=== PATIENT | female | born 1985 | race Caucasian/White ===

== ENCOUNTER → 2020-03-27 15:13 | Outpatient (BNVA) | payer OTHER, SELFPAY | PROVIDERS: Visit Provider Internal Medicine | DX: F11.99 Opioid use, unspecified with unspecified opioid-induced disorder (principal) | CPT/HCPCS: 80305; 99212 ==

== ENCOUNTER → 2020-05-02 14:44 | Outpatient (BNVA) | payer OTHER, SELFPAY | PROVIDERS: Visit Provider Internal Medicine | DX: F11.20 Opioid dependence, uncomplicated (principal) | CPT/HCPCS: 80305; 99211 ==

== ENCOUNTER → 2020-05-30 14:04 | Outpatient (BNVA) | payer OTHER, SELFPAY | PROVIDERS: Visit Provider Internal Medicine | DX: F11.99 Opioid use, unspecified with unspecified opioid-induced disorder (principal) | CPT/HCPCS: 99212 ==

== ENCOUNTER → 2020-06-27 15:08 | Outpatient (BNVA) | payer OTHER, SELFPAY | PROVIDERS: Visit Provider Internal Medicine | DX: F11.99 Opioid use, unspecified with unspecified opioid-induced disorder (principal) | CPT/HCPCS: 80305; 99212 ==

== ENCOUNTER → 2020-07-27 14:52 | Outpatient (BNVA) | payer OTHER, SELFPAY | PROVIDERS: Visit Provider Internal Medicine | DX: F11.99 Opioid use, unspecified with unspecified opioid-induced disorder (principal) | CPT/HCPCS: 80305; 99212 ==

== ENCOUNTER → 2020-08-24 14:33 | Outpatient (BNVA) | payer OTHER, SELFPAY | PROVIDERS: Visit Provider Internal Medicine | DX: F11.99 Opioid use, unspecified with unspecified opioid-induced disorder (principal) | CPT/HCPCS: 99212 ==

== ENCOUNTER 2020-09-21 14:08 | Outpatient (REF) | payer OTHER, SELFPAY ==
[2020-09-25 09:47] LABS: Buprenorphine 370 ng/mL; Norbuprenorphine >1000 ng/mL
[2020-09-25 23:16] LABS: Noroxycodone Random Urine NEGATIVE ng/mL (<50); Oxycodone Random Urine NEGATIVE ng/mL (<50); Oxymorphone Random Urine NEGATIVE ng/mL (<50)
== END 2020-09-21 14:09 | disposition home or self-care (01) ==
LOC: HO.LNP 14:08
PROVIDERS: Visit Provider Internal Medicine
DX: F11.99 Opioid use, unspecified with unspecified opioid-induced disorder (principal); Z51.81 Encounter for therapeutic drug level monitoring
CPT/HCPCS: 80305; 80348; 80365; 99211

== ENCOUNTER → 2020-10-22 14:20 | Outpatient (BNVA) | payer OTHER, SELFPAY | PROVIDERS: Visit Provider Internal Medicine | DX: F11.99 Opioid use, unspecified with unspecified opioid-induced disorder (principal) | CPT/HCPCS: 80305; 99211 ==

== ENCOUNTER 2020-12-24 15:36 | Outpatient (REF) | payer OTHER, SELFPAY | END 2020-12-24 15:37 | disposition home or self-care (01) | LOC: HO.LAB 15:36 | PROVIDERS: Visit Provider Internal Medicine | DX: F11.99 Opioid use, unspecified with unspecified opioid-induced disorder (principal) | CPT/HCPCS: 80305; 80348; 80362; 99211 ==

== ENCOUNTER → 2021-02-18 14:34 | Outpatient (BNVA) | payer OTHER, SELFPAY | PROVIDERS: PCP Physician Assistant; Visit Provider Internal Medicine | DX: F11.20 Opioid dependence, uncomplicated (principal); Z51.81 Encounter for therapeutic drug level monitoring; Z79.899 Other long term (current) drug therapy | CPT/HCPCS: 80305; 99212 ==

== ENCOUNTER → 2021-04-15 14:27 | Outpatient (BNVA) | payer OTHER, SELFPAY | PROVIDERS: PCP Physician Assistant; Visit Provider Internal Medicine | DX: Z51.81 Encounter for therapeutic drug level monitoring (principal); F11.90 Opioid use, unspecified, uncomplicated | CPT/HCPCS: 80305; 99212 ==

== ENCOUNTER → 2021-06-17 13:16 | Outpatient (BNVA) | payer OTHER, SELFPAY | PROVIDERS: PCP Physician Assistant | DX: Z51.81 Encounter for therapeutic drug level monitoring (principal); F11.20 Opioid dependence, uncomplicated | CPT/HCPCS: 80305; 99211 ==

== ENCOUNTER → 2021-08-12 13:24 | Outpatient (BNVA) | payer OTHER, SELFPAY | PROVIDERS: PCP Physician Assistant | DX: Z51.81 Encounter for therapeutic drug level monitoring (principal); F11.20 Opioid dependence, uncomplicated | CPT/HCPCS: 80305; 99211 ==

== ENCOUNTER → 2021-10-08 13:21 | Outpatient (BNVA) | payer OTHER, SELFPAY | PROVIDERS: PCP Physician Assistant; Visit Provider Internal Medicine | DX: F11.20 Opioid dependence, uncomplicated (principal) | CPT/HCPCS: 80305; 99212 ==

== ENCOUNTER → 2021-12-03 13:19 | Outpatient (BNVA) | payer OTHER, SELFPAY | PROVIDERS: PCP Physician Assistant; Visit Provider Internal Medicine | DX: Z51.81 Encounter for therapeutic drug level monitoring (principal); F11.20 Opioid dependence, uncomplicated | CPT/HCPCS: 80305; 99212 ==

== ENCOUNTER → 2022-01-29 13:24 | Outpatient (BNVA) | payer OTHER, SELFPAY | PROVIDERS: PCP Physician Assistant; Visit Provider Internal Medicine | DX: F11.20 Opioid dependence, uncomplicated (principal) | CPT/HCPCS: 99212 ==

== ENCOUNTER → 2022-03-31 13:27 | Outpatient (BNVA) | payer OTHER, SELFPAY | PROVIDERS: PCP Physician Assistant; Visit Provider Internal Medicine | DX: F11.20 Opioid dependence, uncomplicated (principal) | CPT/HCPCS: 99212 ==

== ENCOUNTER → 2022-05-23 13:20 | Outpatient (BNVA) | payer OTHER, SELFPAY | PROVIDERS: PCP Physician Assistant; Visit Provider Internal Medicine | DX: F11.20 Opioid dependence, uncomplicated (principal) | CPT/HCPCS: 99212 ==

== ENCOUNTER → 2022-07-16 09:17 | Outpatient (BNVA) | payer OTHER, SELFPAY | PROVIDERS: PCP Physician Assistant; Visit Provider Nurse Practitioner Psychiatric/Mental Health | DX: Z51.81 Encounter for therapeutic drug level monitoring (principal); F11.21 Opioid dependence, in remission | CPT/HCPCS: 80305; 99212 ==

== ENCOUNTER → 2022-09-10 09:15 | Outpatient (BNVA) | payer OTHER, SELFPAY | PROVIDERS: PCP Physician Assistant; Visit Provider Nurse Practitioner Psychiatric/Mental Health | DX: Z51.81 Encounter for therapeutic drug level monitoring (principal); F11.21 Opioid dependence, in remission | CPT/HCPCS: 80305; 99212 ==

== ENCOUNTER → 2022-11-06 10:32 | Outpatient (BNVA) | payer OTHER, SELFPAY | PROVIDERS: PCP Physician Assistant; Visit Provider Nurse Practitioner Psychiatric/Mental Health | DX: Z51.81 Encounter for therapeutic drug level monitoring (principal); F11.21 Opioid dependence, in remission | CPT/HCPCS: 99212 ==

== ENCOUNTER 2023-01-01 13:28 | Outpatient (AMB) | payer OTHER, SELFPAY ==
--- NOTE | 2023-01-01 13:30 | MHC.OFFVIS ---
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 Doing well overall, bright affect [facility] Medical History Opioid use disorder Review of Systems Const Reports as per HPI and Reports no additional complaints Physical Exam Vital Signs: Last Vital Signs Pulse 74 01/01/23 13:37 BP 110/74 01/01/23 13:37 Pulse Ox 98 01/01/23 13:37 Oxygen Delivery Method Room Air 01/01/23 13:37 Const General: cooperative Psych Appearance: well kempt Speech and movement: Clear speech present Attitude: cooperative Thought process: Normal thought process present Insight: Good insight present (Psych) Judgement: Good judgement present (Psych) Assessment & Plan Assessment & Plan (1) Opioid use disorder, moderate, in sustained remission: Code(s): F11.21 - Opioid dependence, in remission Plan: continue suboxone at current dose follow up 8 weeks Medications: Refilled buprenorphine-naloxone 8-2 mg (Suboxone) 1 film sublingual TID 30 days 90 ea 1RF Coding Level of Care Code Est Pt Level 3 (16473) Diagnoses Opioid use disorder, moderate, in sustained remission F11.21
[2023-01-01 13:37] VITALS: BP 110/74; PULSE 74; O2SAT 98
== END 2023-01-01 13:59 | disposition home or self-care (01) ==
LOC: HO.HCC 13:28
PROVIDERS: PCP Physician Assistant; Visit Provider Nurse Practitioner Psychiatric/Mental Health
DX: F11.21 Opioid dependence, in remission (principal)
CPT/HCPCS: 99213

== ENCOUNTER → 2023-01-01 13:28 | Outpatient (BNVA) | payer OTHER, SELFPAY | PROVIDERS: PCP Physician Assistant; Visit Provider Nurse Practitioner Psychiatric/Mental Health | DX: F11.21 Opioid dependence, in remission (principal); Z51.81 Encounter for therapeutic drug level monitoring; Z79.899 Other long term (current) drug therapy | CPT/HCPCS: 99212 ==

== ENCOUNTER 2023-01-16 08:01 | Emergency (ER) | payer OTHER, SELFPAY ==
[2023-01-16] VITALS (9 sets, daily range): BP systolic 60–155; BP diastolic 30–114; PULSE 122–155; RESP 18–22; TEMP 36.1–37.7; O2SAT 97–100; BMI 22.1
--- NOTE | ~2023-01-16 | CT_ITS ---
EXAMS: 1. CTA chest PE protocol 2. CT abdomen pelvis with IV contrast INDICATION: Shortness of breath. Diffuse abdominal pain. COMPARISON: Abdominal KUB January 16, 2023 TECHNIQUE: Multidetector helical imaging of the chest, abdomen, and pelvis was obtained from the thoracic inlet through the pubic symphysis following administration of 100 cc of Omnipaque 350 IV contrast. Coronal and sagittal reformatted images that were obtained were also reviewed. This CT examination was performed using dose optimization techniques as appropriate, variously including the following: *Automated exposure control *Adjustment of mA and/or kV according to patient size (this includes techniques or standardized protocols for targeted exams where dose is matched to indication/reason for exam; i.e. extremities or head) *Use of iterative reconstruction technique DLP: 1104 mGy-cm FINDINGS: CHEST: Central airways are patent. Lungs are well aerated. Mild dependent opacities bilaterally suggestive of atelectasis. There is no lobar consolidation present. No pleural effusion or pneumothorax. 5 mm right middle lobe pulmonary nodule (image [id number], series 8). The heart is normal in size. There is no pericardial effusion. No appreciable coronary artery calcifications. Normal caliber thoracic aorta. No pulmonary arterial filling defect to suggest pulmonary embolus. No pathologically enlarged axillary lymph nodes. ABDOMEN/PELVIS: The liver is normal in size. There is trace periportal edema. The gallbladder is normal in appearance. There is minimal perihepatic ascites. The pancreas, spleen and adrenal glands are unremarkable. Heterogeneous attenuation of the kidneys is likely related to contrast bolus timing. There is no hydronephrosis of either kidney. The majority of the esophagus is fluid-filled. The stomach is mildly distended with fluid. Normal caliber loops of small bowel. There is a severe stool burden throughout the entirety of the colon. There are areas of circumferential colonic includes subtle wall thickening in addition to pericolonic stranding, most prominent involving the descending colon. The appendix is normal in appearance. Normal caliber abdominal aorta. No retroperitoneal lymphadenopathy. The bladder is decompressed around a Todd catheter and therefore not accurately evaluated. The uterus is either atrophic or surgically absent. There is a small amount of free pelvic fluid present which is nonspecific. No inguinal lymphadenopathy. OSSEOUS STRUCTURES No acute osseous abnormality. CT/CT abdomen pelvis w IV con IMPRESSION: 1. No pulmonary embolism. 2. Severe stool burden throughout the colon consistent with constipation. There are areas of circumferential colonic wall thickening in addition to pericolonic stranding, most prominent involving the descending colon. Findings are likely related to severe constipation, however, colitis is also within the differential. 3. The majority the esophagus is fluid-filled and the stomach is mildly distended with fluid. Small bowel loops however are normal in caliber. 4. 5 mm right middle lobe pulmonary nodule. Fleischner guidelines followed.
--- NOTE | ~2023-01-16 | XR_ITS ---
EXAMINATION: XR CHEST CLINICAL INFORMATION: Tube placement confirmation. COMPARISON: CTA chest earlier today. TECHNIQUE: Frontal view of the chest was obtained. FINDINGS: Endotracheal tube terminates at 3.6 cm above the supa. The tip of the enteric tube projects over the proximal stomach and the side-port at the level of the lower esophagus/GE junction. Normal appearance of the cardiomediastinal silhouette. No focal airspace opacity, pleural effusion or pneumothorax. No acute osseous findings. Residual IV contrast in the bilateral collecting systems. XR/XR chest 1V IMPRESSION: 1. Endotracheal tube terminates at 3.6 cm above the supa. 2. Enteric tube terminates at the proximal stomach with the side-port at the level of the lower esophagus/GE junction. Recommend advancement. 3. No acute cardiopulmonary findings.
--- NOTE | ~2023-01-16 | XR_ITS ---
EXAMINATION: XR ABDOMEN KUB CLINICAL INDICATION: Constipation COMPARISON: None available. TECHNIQUE: AP view of the abdomen. FINDINGS: There is large amount of retained feces mostly in the ascending colon. There is a nonobstructive bowel gas pattern. No calcifications seen in the left side of the colon possibly foreign bodies or unresolved peels. There is no free air under the diaphragm. XR/XR KUB IMPRESSION: Constipation
--- NOTE | 2023-01-16 08:16 | PC.NURSE ---
Bladder scan showed 0 in bladder
--- NOTE | 2023-01-16 08:33 | ED_ITS ---
HPI - General Adult General Chief complaint: General Medical Stated complaint: Abd pain/distention, high HR (142) per EMS Time Seen by Provider: 01/16/23 08:33 Source: patient, EMS, RN notes reviewed and old records reviewed Mode of arrival: EMS History of Present Illness HPI narrative: 37-year-old female with a past medical history of opiate use disorder currently on Suboxone, presenting to the ED via EMS complaining of diffuse abdominal pain, constipation, and urinary retention x 1 day. States had small hard BM last night, has not urinated for 12 hours. Denies fever/chills, vomiting, CP/SOB, illicit substance or EtOH use Onset (ago): day(s) Related Data Home Medications Medication Instructions Recorded Confirmed clonazepam 1 mg tablet 1 mg PO TID 03/27/20 07/16/22 benztropine 1 mg tablet 1 mg PO DAILY 07/16/22 07/16/22 clonidine HCl 0.1 mg tablet 0.1 mg PO BID 07/16/22 07/16/22 dextroamphetamine-amphetamine 20 20 mg PO BID 07/16/22 07/16/22 mg tablet (Adderall) lurasidone 20 mg tablet (Latuda) 20 mg PO QPM 07/16/22 07/16/22 lurasidone 80 mg tablet (Latuda) 80 mg PO QPM 07/16/22 07/16/22 propranolol 20 mg tablet 20 mg PO BID 07/16/22 07/16/22 Previous Rx's Medication Instructions Recorded nicotine 14 mg/24 hr daily 1 patch transdermal DAILY #14 12/05/22 transdermal patch patches buprenorphine 8 mg-naloxone 2 mg 1 film sublingual TID 30 days #90 01/01/23 sublingual film (Suboxone) ea Allergies Allergy/AdvReac Type Severity Reaction Status Date / Time No Known Allergies Allergy Verified 01/01/23 13:39 [No Known Allergies*] Review of Systems Review of Systems: Constitutional: No Fever, No Chills, No Fatigue, No Malaise ENT/Mouth: No Ear Pain, No Nasal Congestion,No sore throat, No Rhinorrhea, No Swallowing Difficulty Eyes: No Eye Pain, No Swelling, No Redness, No Vision Changes Cardiovascular: No Chest Pain, No SOB, No Edema, No Palpitations Respiratory: No Cough, No Sputum, No Dyspnea Gastrointestinal: No Nausea, No Vomiting, No Diarrhea, + Constipation, + Abdominal pain Genitourinary: No Dysuria, No Urinary Frequency, No Hematuria, No Urinary Incontinence, + retention, No Flank Pain Musculoskeletal: No joint pain, No Myalgias, No Joint Swelling Skin: No Skin Lesions, No rash Neuro: No Weakness, No Numbness, No Dizziness, No Headache Yes all other systems are reviewed and are negative Constitutional: Constitutional: Reports as per [facility] Past Medical History Attestation statement: The following information was validated with the patient. Source: old records reviewed Medical History Opioid use disorder Social History Social History Alcohol intake: former Smoked in Last 30 Days: No Advance Directives: No Advance Directives Information Provided: No Patient : No Physical Exam ED Vital Signs: Vital Signs - 24 hr 01/16/23 08:05 01/16/23 08:47 01/16/23 09:05 Temperature 96.9 F Pulse Rate 146 H Respiratory Rate 18 Blood Pressure 122/98 H 155/114 H Pulse Oximetry 100 Oxygen Delivery Method Room Air Fraction of Inspired Oxygen 01/16/23 15:52 01/16/23 16:48 01/16/23 17:40 Temperature Pulse Rate 122 H 144 H Respiratory Rate 18 Blood Pressure 117/81 60/30 L Pulse Oximetry 97 Oxygen Delivery Method Room Air Fraction of Inspired Oxygen 100 BMI result Body Mass Index 22.1 Const Other: Pale, diaphoretic General: diaphoretic Orientation/consciousness: patient oriented x3 Limitations: no limitations [facility] Head: Yes normal to inspection and Yes atraumatic Ears: hearing grossly normal bilaterally General nose exam: Normal external nose present Face and sinus: Yes normal facial exam Eyes General: appearance normal, both eyes and all related structures EOM: EOMs intact bilaterally Neck Neck: Yes normal visual inspection and Yes no meningeal signs Resp Effort & Inspection: normal respiratory effort and no respiratory distress Auscultation: clear to auscultation bilaterally Cardio Rate: regular rate Heart sounds: S1 normal heart sound present and S2 normal heart sound present GI Inspection: Yes normal to inspection and Yes distended Palpation (GI): Soft to palpation, Tenderness to palpation present (GI) (Diffusely) with no rebound tenderness, no guarding and not rigid General: Yes no CVA tenderness Back/Spine/Pelvis Back: no CVA tenderness Skin Rashes: no rashes Wounds: no wounds Neuro General: patient oriented x3, tone normal and no meningeal signs Gait exam (Neuro): Normal gait present Extrem General: Yes normal to inspection Course Course Course Narrative: -1048--no leukocytosis. Hemoconcentrated likely from dehydration -hypermagnesemia to 3.5 > will repeat after IVF (denies taking magnesium supplements), alk phos elevated, troponin 21.3 > will obtain 3 hour repeat XR KUB IMPRESSION: Constipation -1135--repeat troponin 30.3, OH unlikely. lactic acidosis of 6.7 > 3L IVF ordered, pending CT's -1216--patient was on CT scan table however became agitated/upset and walked out >> dark/black urine noted in Todd, CPK/ammonia level added. Will give 2 mg of IV Ativan to assist with anxiety in hopes of obtaining CT -1318--patient combative and uncooperative in CT scan received 2 of IV Ativan prior to CT, & a total 100mcg of IV Fentanyl w/o improvement, patient still jumping off CT bed, consulted ED attending Dr. Herrera > will give additional 10 mg of IM Haldol >> Haldol still unable to calm/ control patient > will go back to ED room and plan for IV Ketamine -patient now sedated, maintaining airway -multiple repeat labs/tox screen ordered however unable to obtain blood on patient after multiple sticks and phlebotomy >> manual disimpaction performed with some relief > general surgery, Dr. Swartz consulted and will evaluate patient in the ED > recommended ICU > no ICU beds, plan for transfer -161--CT angio chest PE protocol/CT abdomen pelvis w IV con IMPRESSION:? 1.? No pulmonary embolism. 2.? Severe stool burden throughout the colon consistent with constipation. There are areas of circumferential colonic wall thickening in addition to pericolonic stranding, most prominent involving the descending colon. Findings are likely related to severe constipation, however, colitis is also within the differential. 3.? The majority the esophagus is fluid-filled and the stomach is mildly distended with fluid. Small bowel loops however are normal in caliber. 4.? 5 mm right middle lobe pulmonary nodule. ? Fleischner guidelines followed. -patient mottled, BP soft 60s over 40s, decreased responsiveness, unable to obtain O2 sat > spoke with [place] transfer line patient accepted the ED to ED Dr. Skinner Peripheral Levophed started >> central line placed & intubated by Dr. Ellis & NG tube placed -1825--patient will be life flighted to [place]. [facility] at bedside Medications Administered Generic Name Dose Route Start Last Admin Trade Name Freq PRN Reason Stop Dose Admin Norepinephrine Bitartrate 8 mg in 250 mls @ 0 mls/hr 01/16/23 16:45 01/16/23 16:48 Levophed IV 0.05 mcg/kg/min .Q0M LO 5.83 mls/hr Administration Protocol Per Protocol Discontinued Medications Generic Name Dose Route Start Last Admin Trade Name Freq PRN Reason Stop Dose Admin Etomidate 10 mg 01/16/23 17:54 01/16/23 17:59 Etomidate 20 Mg/10 Ml Vial IVPUSH 01/16/23 17:55 10 mg ONCE ONE Administration Fentanyl 50 mcg 01/16/23 12:47 01/16/23 13:38 Fentanyl Citrate/Pf 100 Mcg/2 Ml Vial IVPUSH 01/16/23 12:48 50 mcg ONCE ONE Administration Protocol Fentanyl 50 mcg 01/16/23 12:58 01/16/23 13:39 Fentanyl Citrate/Pf 100 Mcg/2 Ml Vial IVPUSH 01/16/23 12:59 50 mcg ONCE ONE Administration Protocol Haloperidol Lactate 10 mg 01/16/23 13:03 01/16/23 13:38 Haloperidol Lactate 5 Mg/Ml Vial IM 01/16/23 13:04 10 mg STAT STA Administration Sodium Chloride 1,000 mls @ 999 mls/hr 01/16/23 08:45 01/16/23 15:13 Ns IV 01/16/23 09:45 Infused .Q1H1M LO Infusion Piperacillin Sod/Tazobactam 50 mls @ 100 mls/hr 01/16/23 08:44 01/16/23 15:13 Sod 3.375 gm/ Sodium Chloride IV 01/16/23 09:13 Infused ONCE ONE Infusion Sodium Chloride 1,000 mls @ 999 mls/hr 01/16/23 10:15 01/16/23 15:12 Ns IV 01/16/23 11:15 Infused .Q1H1M LO Infusion Lactated Ringer's 1,000 mls @ 999 mls/hr 01/16/23 11:45 01/16/23 15:13 Lr IV 01/16/23 12:45 Infused .Q1H1M LO Infusion Piperacillin Sod/Tazobactam 50 mls @ 100 mls/hr 01/16/23 17:47 01/16/23 17:59 Sod 3.375 gm/ Sodium Chloride IV 01/16/23 18:16 100 mls/hr ONCE ONE Administration Ketamine HCl 50 mg 01/16/23 14:22 01/16/23 14:43 Ketamine Hcl/Ns 100 Mg/10 Ml Syringe IVPUSH 01/16/23 14:23 50 mg STAT STA Administration Lorazepam 2 mg 01/16/23 12:15 01/16/23 12:22 Lorazepam 2 Mg/Ml Vial IVPUSH 01/16/23 12:16 2 mg ONCE ONE Administration Morphine Sulfate 2 mg 01/16/23 08:42 01/16/23 08:52 Morphine Sulfate 2 Mg/Ml Cartridge IVPUSH 01/16/23 08:43 2 mg ONCE ONE Administration Protocol Morphine Sulfate 4 mg 01/16/23 11:00 01/16/23 11:32 Morphine Sulfate 4 Mg/Ml Cartridge IVPUSH 01/16/23 11:01 4 mg ONCE ONE Administration Protocol Rocuronium Paloma 100 mg 01/16/23 17:54 01/16/23 17:59 Rocuronium Paloma 50 Mg/5 Ml Vial IVPUSH 01/16/23 17:55 100 mg ONCE ONE Administration Procedures Central Line Placement Right Femoral: Patient Placed on Monitor/Pulse Ox: Yes MD Prep: mask, gown and gloves Central Line Prep: Povidone-Iodine 1% and sterile drapes applied Ultrasound Used for Placement: Yes Central Line Lumen Inserted: triple Post Procedure: sutured in place, good blood return, all ports aspirated, flushed, capped and sterile dressing applied Post Procedure X-Ray: tip of catheter in good position Patient Tolerated Procedure: well Complications: none Intubation Time out performed: Yes sedative: Etomidate Mg Given: 10 paralytic: Rocuronium Mg Given: 100 Laryngoscope: fiber optic video scope ET Tube Size: 7.5 ET Tube Uncuffed: Yes Tube Secured Depth (cm): 22 Tube Secured Location: lips Tube Placement Confirmation: visualized tube passing through cords, equal breath sounds bilaterally and confirmation by capnometry Patient Tolerated Procedure: well Intubation Complications: difficult intubation and other (gastric contents ) Medical Decision Making Medical Decision Making [facility] Narrative: 37-year-old female with a past medical history of opiate use disorder currently on Suboxone, presenting to the ED via EMS complaining of diffuse abdominal pain, constipation, and urinary retention x 1 day. On exam tachycardic likely from pain, pale, diaphoretic, appears uncomfortable, abdomen mildly distended, soft, diffusely tender. 0cc noted on bladder scan. Concern for constipation/SBO & urinary retention vs perforation or ischemic bowel vs appendicitis/diverticulitis. Lower suspicion for ACS/PE Plan: EKG, labs, lactic/blood cultures, UA, CT AP, IVF, pain control, empiric antibiotics Please refer to course for remaining clinical decision making, interpretation of labs/imaging results, and discussions with consultants and/or family members. Differential Diagnosis Differential Diagnoses: The differential diagnosis associated with the presentation includes As above Admission/Observation Consideration of admission/observation: Escalation of care including admission/observation considered Lab Data [facility] Lab Attestation statement: I reviewed the patient's lab results. 01/16/23 09:51 01/16/23 09:51 Labs: Lab Results 01/16/23 01/16/23 01/16/23 Range/Units 09:51 09:51 09:51 WBC 7.3 (4.8-10.8) X10*3/uL RBC 5.88 H (4.20-5.50) X10*6/uL Hgb 17.8 H (12.0-16.0) g/dl Hct 51.9 H (37.0-47.0) % MCV 88.3 (80.0-98.0) fL MCH 30.3 (27.0-33.0) pg MCHC 34.3 (31.0-35.0) g/dl RDW 12.1 (11.0-16.0) % Plt Count 262 (160-400) X10*3/uL MPV 9.2 L (9.4-12.3) fL Immature Gran % (Auto) 0.4 (0.0-0.4) % Neut % (Auto) 71.4 (45-73) % Lymph % (Auto) 17.4 L (20-40) % Ellsworth % (Auto) 9.4 (2-11) % Eos % (Auto) 0.4 (0-4) % Baso % (Auto) 1.0 (0-2) % Lymph # (Auto) 1.3 (1.2-4.9) X10*3/uL Ellsworth # (Auto) 0.7 (0.1-1.2) X10*3/uL Eos # (Auto) 0.0 (0.0-0.4) X10*3/uL Baso # (Auto) 0.1 (0.0-0.2) X10*3/uL Abs Immat Gran (auto) 0.03 (0.00-0.03) X10*3/uL Absolute Neuts (auto) 5.2 (2.0-8.3) x10*3/uL Absolute Nucleated RBC 0.000 (0.0-0.012) X10*3/uL Nucleated RBC % (auto) 0.0 (0.0-0.2) /100WBC PT (11.1-13.3) SEC INR (0.9-1.1) Sodium 136 (135-145) mmol/L Potassium 3.8 (3.3-5.1) mmol/L Chloride 109 H (96-108) mmol/L Carbon Dioxide 12 L (22-29) mmol/L Anion Gap 19 (12-20) BUN 19 H (9-16) mg/dL Creatinine 1.02 (0.5-1.4) mg/dL Estim Creat Clear Calc 70.6 Estimated GFR > 60 Random Glucose 146 H (60-115) mg/dL Lactic Acid (0.5-2.0) mmol/L Lactic Acid F/U @ 2Hr (0.5-2.0) mmol/L Calcium 9.9 (8.4-10.2) mg/dL Magnesium 3.5 H* (1.6-2.6) mg/dL Total Bilirubin 1.1 H (0.0-1.0) mg/dL Direct Bilirubin 0.6 H (0.0-0.5) mg/dL AST 18 (5-31) U/L ALT 15 (0-31) U/L Alkaline Phosphatase 262 H (39-117) U/L Total Creatine Kinase (26-140) U/L Troponin I High Sens 21.3 H (<3.5-17.0) ng/L C-Reactive Protein 1.71 H (< or = 0.50) mg/dL Total Protein 5.6 L (6.5-8.0) g/dL Albumin 3.2 L (3.5-5.0) g/dL Lipase 12 (8-78) U/L Beta HCG, Quant < 2 mIU/mL Urine Color Urine Appearance Urine pH (5.0-9.0) Ur Specific Jenkins (1.005-1.025) Urine Protein (Neg-Trace) mg/dL Urine Glucose (UA) Urine Ketones Urine Blood (Negative) Urine Nitrite Ur Leukocyte Esterase Urine RBC (0-2) /HPF Urine WBC (0-5) /HPF Ur Squamous Epith Cells (0-2) /HPF Ur Renal Epithelial Cell Calcium Oxalate Crystal Other Crystals Urine Bacteria (None Seen) Hyaline Casts (0-2) /LPF Urine Opiates Screen Urine Fentanyl Screen Ur Barbiturates Screen Ur Phencyclidine Scrn Ur Amphetamines Screen U Benzodiazepines Scrn Urine Cocaine Screen U Marijuana (THC) Screen Ethyl Alcohol < 10 mg/dL 01/16/23 01/16/23 01/16/23 Range/Units 10:47 10:47 10:47 WBC (4.8-10.8) X10*3/uL RBC (4.20-5.50) X10*6/uL Hgb (12.0-16.0) g/dl Hct (37.0-47.0) % MCV (80.0-98.0) fL MCH (27.0-33.0) pg MCHC (31.0-35.0) g/dl RDW (11.0-16.0) % Plt Count (160-400) X10*3/uL MPV (9.4-12.3) fL Immature Gran % (Auto) (0.0-0.4) % Neut % (Auto) (45-73) % Lymph % (Auto) (20-40) % Ellsworth % (Auto) (2-11) % Eos % (Auto) (0-4) % Baso % (Auto) (0-2) % Lymph # (Auto) (1.2-4.9) X10*3/uL Ellsworth # (Auto) (0.1-1.2) X10*3/uL Eos # (Auto) (0.0-0.4) X10*3/uL Baso # (Auto) (0.0-0.2) X10*3/uL Abs Immat Gran (auto) (0.00-0.03) X10*3/uL Absolute Neuts (auto) (2.0-8.3) x10*3/uL Absolute Nucleated RBC (0.0-0.012) X10*3/uL Nucleated RBC % (auto) (0.0-0.2) /100WBC PT (11.1-13.3) SEC INR (0.9-1.1) Sodium (135-145) mmol/L Potassium (3.3-5.1) mmol/L Chloride (96-108) mmol/L Carbon Dioxide (22-29) mmol/L Anion Gap (12-20) BUN (9-16) mg/dL Creatinine (0.5-1.4) mg/dL Estim Creat Clear Calc Estimated GFR Random Glucose (60-115) mg/dL Lactic Acid 6.7 H* (0.5-2.0) mmol/L Lactic Acid F/U @ 2Hr (0.5-2.0) mmol/L Calcium (8.4-10.2) mg/dL Magnesium (1.6-2.6) mg/dL Total Bilirubin (0.0-1.0) mg/dL Direct Bilirubin (0.0-0.5) mg/dL AST (5-31) U/L ALT (0-31) U/L Alkaline Phosphatase (39-117) U/L Total Creatine Kinase 59 (26-140) U/L Troponin I High Sens 30.3 H (<3.5-17.0) ng/L C-Reactive Protein (< or = 0.50) mg/dL Total Protein (6.5-8.0) g/dL Albumin (3.5-5.0) g/dL Lipase (8-78) U/L Beta HCG, Quant mIU/mL Urine Color Urine Appearance Urine pH (5.0-9.0) Ur Specific Jenkins (1.005-1.025) Urine Protein (Neg-Trace) mg/dL Urine Glucose (UA) Urine Ketones Urine Blood (Negative) Urine Nitrite Ur Leukocyte Esterase Urine RBC (0-2) /HPF Urine WBC (0-5) /HPF Ur Squamous Epith Cells (0-2) /HPF Ur Renal Epithelial Cell Calcium Oxalate Crystal Other Crystals Urine Bacteria (None Seen) Hyaline Casts (0-2) /LPF Urine Opiates Screen Urine Fentanyl Screen Ur Barbiturates Screen Ur Phencyclidine Scrn Ur Amphetamines Screen U Benzodiazepines Scrn Urine Cocaine Screen U Marijuana (THC) Screen Ethyl Alcohol mg/dL 01/16/23 01/16/23 01/16/23 Range/Units 11:13 11:13 12:01 WBC (4.8-10.8) X10*3/uL RBC (4.20-5.50) X10*6/uL Hgb (12.0-16.0) g/dl Hct (37.0-47.0) % MCV (80.0-98.0) fL MCH (27.0-33.0) pg MCHC (31.0-35.0) g/dl RDW (11.0-16.0) % Plt Count (160-400) X10*3/uL MPV (9.4-12.3) fL Immature Gran % (Auto) (0.0-0.4) % Neut % (Auto) (45-73) % Lymph % (Auto) (20-40) % Ellsworth % (Auto) (2-11) % Eos % (Auto) (0-4) % Baso % (Auto) (0-2) % Lymph # (Auto) (1.2-4.9) X10*3/uL Ellsworth # (Auto) (0.1-1.2) X10*3/uL Eos # (Auto) (0.0-0.4) X10*3/uL Baso # (Auto) (0.0-0.2) X10*3/uL Abs Immat Gran (auto) (0.00-0.03) X10*3/uL Absolute Neuts (auto) (2.0-8.3) x10*3/uL Absolute Nucleated RBC (0.0-0.012) X10*3/uL Nucleated RBC % (auto) (0.0-0.2) /100WBC PT 12.8 (11.1-13.3) SEC INR 1.1 (0.9-1.1) Sodium (135-145) mmol/L Potassium (3.3-5.1) mmol/L Chloride (96-108) mmol/L Carbon Dioxide (22-29) mmol/L Anion Gap (12-20) BUN (9-16) mg/dL Creatinine (0.5-1.4) mg/dL Estim Creat Clear Calc Estimated GFR Random Glucose (60-115) mg/dL Lactic Acid (0.5-2.0) mmol/L Lactic Acid F/U @ 2Hr (0.5-2.0) mmol/L Calcium (8.4-10.2) mg/dL Magnesium (1.6-2.6) mg/dL Total Bilirubin (0.0-1.0) mg/dL Direct Bilirubin (0.0-0.5) mg/dL AST (5-31) U/L ALT (0-31) U/L Alkaline Phosphatase (39-117) U/L Total Creatine Kinase (26-140) U/L Troponin I High Sens (<3.5-17.0) ng/L C-Reactive Protein (< or = 0.50) mg/dL Total Protein (6.5-8.0) g/dL Albumin (3.5-5.0) g/dL Lipase (8-78) U/L Beta HCG, Quant mIU/mL Urine Color BROWN Urine Appearance Cloudy Urine pH 6.5 (5.0-9.0) Ur Specific Jenkins >= 1.030 H (1.005-1.025) Urine Protein 100 (2+) H (Neg-Trace) mg/dL Urine Glucose (UA) TNP Urine Ketones TNP Urine Blood Trace (Negative) Urine Nitrite TNP Ur Leukocyte Esterase TNP Urine RBC 3-5 H (0-2) /HPF Urine WBC 0-5 (0-5) /HPF Ur Squamous Epith Cells >20 (0-2) /HPF Ur Renal Epithelial Cell Present Calcium Oxalate Crystal Present Other Crystals Present Urine Bacteria None Seen (None Seen) Hyaline Casts 11-20 (0-2) /LPF Urine Opiates Screen Cancelled Urine Fentanyl Screen Cancelled Ur Barbiturates Screen Cancelled Ur Phencyclidine Scrn Cancelled Ur Amphetamines Screen Cancelled U Benzodiazepines Scrn Cancelled Urine Cocaine Screen Cancelled U Marijuana (THC) Screen Cancelled Ethyl Alcohol mg/dL 01/16/23 Range/Units 17:10 WBC (4.8-10.8) X10*3/uL RBC (4.20-5.50) X10*6/uL Hgb (12.0-16.0) g/dl Hct (37.0-47.0) % MCV (80.0-98.0) fL MCH (27.0-33.0) pg MCHC (31.0-35.0) g/dl RDW (11.0-16.0) % Plt Count (160-400) X10*3/uL MPV (9.4-12.3) fL Immature Gran % (Auto) (0.0-0.4) % Neut % (Auto) (45-73) % Lymph % (Auto) (20-40) % Ellsworth % (Auto) (2-11) % Eos % (Auto) (0-4) % Baso % (Auto) (0-2) % Lymph # (Auto) (1.2-4.9) X10*3/uL Ellsworth # (Auto) (0.1-1.2) X10*3/uL Eos # (Auto) (0.0-0.4) X10*3/uL Baso # (Auto) (0.0-0.2) X10*3/uL Abs Immat Gran (auto) (0.00-0.03) X10*3/uL Absolute Neuts (auto) (2.0-8.3) x10*3/uL Absolute Nucleated RBC (0.0-0.012) X10*3/uL Nucleated RBC % (auto) (0.0-0.2) /100WBC PT (11.1-13.3) SEC INR (0.9-1.1) Sodium (135-145) mmol/L Potassium (3.3-5.1) mmol/L Chloride (96-108) mmol/L Carbon Dioxide (22-29) mmol/L Anion Gap (12-20) BUN (9-16) mg/dL Creatinine (0.5-1.4) mg/dL Estim Creat Clear Calc Estimated GFR Random Glucose (60-115) mg/dL Lactic Acid (0.5-2.0) mmol/L Lactic Acid F/U @ 2Hr 8.3 H* (0.5-2.0) mmol/L Calcium (8.4-10.2) mg/dL Magnesium (1.6-2.6) mg/dL Total Bilirubin (0.0-1.0) mg/dL Direct Bilirubin (0.0-0.5) mg/dL AST (5-31) U/L ALT (0-31) U/L Alkaline Phosphatase (39-117) U/L Total Creatine Kinase (26-140) U/L Troponin I High Sens (<3.5-17.0) ng/L C-Reactive Protein (< or = 0.50) mg/dL Total Protein (6.5-8.0) g/dL Albumin (3.5-5.0) g/dL Lipase (8-78) U/L Beta HCG, Quant mIU/mL Urine Color Urine Appearance Urine pH (5.0-9.0) Ur Specific Jenkins (1.005-1.025) Urine Protein (Neg-Trace) mg/dL Urine Glucose (UA) Urine Ketones Urine Blood (Negative) Urine Nitrite Ur Leukocyte Esterase Urine RBC (0-2) /HPF Urine WBC (0-5) /HPF Ur Squamous Epith Cells (0-2) /HPF Ur Renal Epithelial Cell Calcium Oxalate Crystal Other Crystals Urine Bacteria (None Seen) Hyaline Casts (0-2) /LPF Urine Opiates Screen Urine Fentanyl Screen Ur Barbiturates Screen Ur Phencyclidine Scrn Ur Amphetamines Screen U Benzodiazepines Scrn Urine Cocaine Screen U Marijuana (THC) Screen Ethyl Alcohol mg/dL Independent Interpretation I performed an independent interpretation of an: EKG (Sinus tachycardia at a rate of 140bpm, no QT changes, no stemi) and Plain X-Ray (Constipation/stool noted with dilated bowel loops) Radiology Impression Discussion of test interpretation with radiology: I have reviewed the radiologist's reading. Independent Historian Clinical information obtained from an independent historian. History obtained from or confirmed by: Other (Mother) External Record Review External record reviewed: Inpatient record, Office record, Outpatient record, Prior outpatient labs, Prior outpatient radiology, Primary care record and Outside ED record Tests considered The following testing was considered but not selected: As above Prescription Management I considered prescription management with: Pain Medication and Antibiotic Social Determinants Patient?s care significantly limited by Social Determinants of Health including: Alcoholism and drug addiction in family Critical Care Time Critical Care Time Critical Care Time: Yes Total Critical Care Time: 90 Attestation: I have personally provided critical care time exclusive of time spent on separately billable procedures. Time includes review of lab data, radiology results, discussion with consultants, and monitoring for potential decompensation. Intervention performed as documented. Discharge Plan Discharge Clinical Impression: Constipation, Acute lactic acidosis, Hypotension Patient Disposition: [facility] Transfer Details: [place] ED to ED Prescriptions: No Action nicotine 14 mg/24 hr patch 24 hour 1 patch transdermal DAILY Qty: 14 1RF clonazepam 1 mg tablet 1 mg PO TID Latuda 80 mg tablet 80 mg PO QPM Rx Instructions: must administer with food (at least 350 calories) Latuda 20 mg tablet 20 mg PO QPM Rx Instructions: must administer with food (at least 350 calories) clonidine HCl 0.1 mg tablet 0.1 mg PO BID propranolol 20 mg tablet 20 mg PO BID benztropine 1 mg tablet 1 mg PO DAILY dextroamphetamine-amphetamine [Adderall] 20 mg tablet 20 mg PO BID Rx Instructions: administer doses at least 4-6 hours apart buprenorphine-naloxone [Suboxone] 8-2 mg film 1 film sublingual TID 30 Days Qty: 90 1RF
--- NOTE | 2023-01-16 08:34 | ECG_ITS ---
Test Reason : TACHY Blood Pressure : / mmHG Vent. Rate : 140 BPM Atrial Rate : 140 BPM P-R Int : 144 ms QRS Dur : 074 ms QT Int : 276 ms P-R-T Axes : 065 068 066 degrees QTc Int : 421 ms Sinus tachycardia Biatrial enlargement Abnormal ECG When compared with ECG of 27-NOV-2015 12:26, Vent. rate has increased BY 64 BPM QRS duration has decreased Referred By: Shanna Hernandez Electronically Signed By:Raphael Castaneda
[2023-01-16] MEDS: 0.9 % Sodium Chloride 1,000 ML 999 ML IV ×2 (08:51→10:16)
[2023-01-16] MEDS: Morphine Sulfate 2 MG/ML CARTRIDGE IVPUSH (08:52)
--- NOTE | 2023-01-16 09:38 | PC.NURSE ---
difficult to obtain labs another tech is attempting at this time
[2023-01-16 09:57] LABS: MANUAL DIFF FLAG NO
[2023-01-16 09:59] LABS: Basophils Absolute Auto 0.1 X10*3/uL (0.0-0.2); Eosinophils Percent Auto 0.4 % (0-4); Hematocrit 51.9 % (37.0-47.0); Hemoglobin 17.8 g/dl (12.0-16.0); Imm Gran Abs Auto 0.03 X10*3/uL (0.00-0.03); Imm Gran Pct Auto 0.4 % (0.0-0.4); Lymphocytes Absolute Auto 1.3 X10*3/uL (1.2-4.9); Lymphocytes Percent Auto 17.4 % (20-40); Mean Corpuscular HGB Conc 34.3 g/dl (31.0-35.0); Mean Corpuscular Hemoglobin 30.3 pg (27.0-33.0); Mean Corpuscular Volume 88.3 fL (80.0-98.0); Mean Platelet Volume 9.2 fL (9.4-12.3); Monocytes Absolute Auto 0.7 X10*3/uL (0.1-1.2); Monocytes Percent Auto 9.4 % (2-11); Neutrophils Absolute Auto 5.2 x10*3/uL (2.0-8.3); Neutrophils Percent Auto 71.4 % (45-73); Platelet Count 262 X10*3/uL (160-400); Red Blood Count 5.88 X10*6/uL (4.20-5.50); Red Cell Distribution Width 12.1 % (11.0-16.0); White Blood Count 7.3 X10*3/uL (4.8-10.8)
[2023-01-16] MEDS: Piperacillin Sodium/Tazobactam 3.375 GM in 0.9 % Sodium Chloride 50 ML IV ×2 (10:16→17:59)
[2023-01-16 10:29] LABS: Troponin-I High Sensitivity 21.3 ng/L (<3.5-17.0)
[2023-01-16 10:44] LABS: Alanine Aminotransferase 15 U/L (0-31); Albumin Level 3.2 g/dL (3.5-5.0); Alkaline Phosphatase 262 U/L (39-117); Anion Gap 19 (12-20); Aspartate Amino Transferase 18 U/L (5-31); Bilirubin Direct 0.6 mg/dL (0.0-0.5); Bilirubin Total 1.1 mg/dL (0.0-1.0); Blood Urea Nitrogen 19 mg/dL (9-16); Calcium 9.9 mg/dL (8.4-10.2); Carbon Dioxide 12 mmol/L (22-29); Chloride 109 mmol/L (96-108); Creatinine Clr Calc Pharmacy 70.6; Estimated Glomerular Filt Rate > 60; Ethanol < 10 mg/dL; Glucose Random 146 mg/dL (60-115); HCG Quantitative < 2 mIU/mL; Lipase 12 U/L (8-78); Magnesium 3.5 mg/dL (1.6-2.6); Potassium 3.8 mmol/L (3.3-5.1); Sodium 136 mmol/L (135-145); Total Protein 5.6 g/dL (6.5-8.0)
--- NOTE | 2023-01-16 11:19 | PC.NURSE ---
Todd placed, dark concentrated urine.
[2023-01-16 11:21] LABS: Troponin-I High Sensitivity 30.3 ng/L (<3.5-17.0)
[2023-01-16] MEDS: Morphine Sulfate 4 MG/ML CARTRIDGE IVPUSH (11:32)
[2023-01-16 11:35] LABS: Lactic Acid 6.7 mmol/L (0.5-2.0)
[2023-01-16 11:44] LABS: Appearance Urine Cloudy; Color Urine BROWN; PH 6.5 (5.0-9.0); Specific Gravity - Urine >= 1.030 (1.005-1.025); UMIC TRIGGER UACC YES; Urine Blood Trace (Negative); Urine Protein 100 (2+) mg/dL (Neg-Trace)
[2023-01-16 11:55] LABS: Squamous Epithelial Cell Urine >20 /HPF (0-2); WBC Urine 0-5 /HPF (0-5)
[2023-01-16 11:56] LABS: Bacteria Urine None Seen (None Seen); Calcium Oxalate Crystals Urine Present; Other Crystals Urine Present; Renal Epithelial Cells Urine Present
[2023-01-16 12:04] LABS: UACC Culture Trigger YES
[2023-01-16 12:06] LABS: C Reactive Protein 1.71 mg/dL (< or = 0.50)
[2023-01-16 12:16] LABS: INTERNATIONAL NORM RATIO 1.1 (0.9-1.1); Prothrombin Time 12.8 SEC (11.1-13.3)
[2023-01-16] MEDS: LORazepam 2 MG/ML VIAL IVPUSH (12:22)
[2023-01-16] MEDS: Lactated Ringers 1,000 ML 999 ML IV (12:32)
[2023-01-16 12:50] LABS: Reflex Lactate? Lactic Acid Added
--- NOTE | 2023-01-16 13:25 | PC.NURSE ---
pt is uncooperative with exams will not lay still for ct
--- NOTE | 2023-01-16 13:31 | PC.NURSE ---
PT is uncooperative with medical treatment, is confused disorganized speech.
[2023-01-16] MEDS: fentaNYL citrate/PF 100 MCG/2 ML VIAL 50 MCG IVPUSH ×2 (13:38→13:39)
[2023-01-16] MEDS: Haloperidol Lactate 5 MG/ML VIAL 10 MG IM (13:38)
[2023-01-16] MEDS: Ketamine HCl/NS 100 MG/10 ML SYRINGE 50 MG IVPUSH (14:43)
--- NOTE | 2023-01-16 15:14 | PC.NURSE ---
PT has been pale mottled and lopez in color during ER stay
--- NOTE | 2023-01-16 15:21 | PC.NURSE ---
pt needed several medications to be able to participate in care, CT was able to be ubtained
--- NOTE | 2023-01-16 16:42 | P.CONGS_ITS ---
History of Present Illness Consult details Consult date: 01/16/23 Narrative: 37F wofran known hx of IVDA, on SUboxone and Methadone, brought to the ED this morning by the grandmother because of abdominal pain and SOB. According to staff, she was extremelyl uncooperative and the grandmother had to beg her to stay in the ED. She had to be given multiple meds to sedate her for blood draws and a CT scan, so workup was a little delayed. The CT scan shows heavy stool volume in the colon and rectum c/w constipation, with a distended fluid filled stomach. There was no hx of vomitting. The pt currently is obtunded and does not provide hx. The grandmother is not in the area, but the grandfather whoiI spoke to by phone stated that they really do not know anything else about the patient as the patient only calls when she has a big problem . I was asked to consult in view of the severe constipation and elevated lactate. Review of Systems Review of Systems: Yes Unobtainable due to mental condition and Unobtainable due to mental status PMFSH Past Medical History Medical History Opioid use disorder Social History Social History Alcohol intake: former Smoked in Last 30 Days: No Advance Directives: No Advance Directives Information Provided: No Patient : No Meds Allergies Allergy/AdvReac Type Severity Reaction Status Date / Time No Known Allergies Allergy Verified 01/01/23 13:39 [No Known Allergies*] Active Medications: Current Medications Lactated Ringer's (Lr) 1,000 mls @ 100 mls/hr IVCONT .Q10H LO Norepinephrine Bitartrate (Levophed) 8 mg in 250 mls @ 0 mls/hr IV .Q0M LO; Protocol Home Medications Medication Instructions Recorded Confirmed Last Taken Type clonazepam 1 mg tablet 1 mg PO TID 03/27/20 07/16/22 Unknown History benztropine 1 mg tablet 1 mg PO DAILY 07/16/22 07/16/22 Unknown History clonidine HCl 0.1 mg tablet 0.1 mg PO BID 07/16/22 07/16/22 Unknown History dextroamphetamine-amphetamine 20 20 mg PO BID 07/16/22 07/16/22 Unknown History mg tablet (Adderall) lurasidone 20 mg tablet (Latuda) 20 mg PO QPM 07/16/22 07/16/22 Unknown History lurasidone 80 mg tablet (Latuda) 80 mg PO QPM 07/16/22 07/16/22 Unknown History propranolol 20 mg tablet 20 mg PO BID 07/16/22 07/16/22 Unknown History Physical Exam Vital Signs: Vital Signs: Last Vital Signs Temp 96.9 F 01/16/23 08:47 Pulse 122 H 01/16/23 15:52 Resp 18 01/16/23 15:52 BP 117/81 01/16/23 15:52 Pulse Ox 97 01/16/23 15:52 O2 Del Method Room Air 01/16/23 15:52 BMI result Body Mass Index 22.1 Const: Other: obtunded,tachypneic, not communicative Resp: Other: hyperventilating Cardio: Rate: tachycardic GI: Other: soft but apparent tenderness diffusely rectal exam done earlier by ED staff- hard stools in rectal vault; I repeated the rectal exam - rectal vault empty at this time : Other: urine very dark Results Labs 01/16/23 09:51 01/16/23 09:51 Labs: Abnormal lab results 01/16/23 01/16/23 01/16/23 Range/Units 09:51 09:51 09:51 RBC 5.88 H (4.20-5.50) X10*6/uL Hgb 17.8 H (12.0-16.0) g/dl Hct 51.9 H (37.0-47.0) % MPV 9.2 L (9.4-12.3) fL Lymph % (Auto) 17.4 L (20-40) % Chloride 109 H (96-108) mmol/L Carbon Dioxide 12 L (22-29) mmol/L BUN 19 H (9-16) mg/dL Random Glucose 146 H (60-115) mg/dL Lactic Acid (0.5-2.0) mmol/L Magnesium 3.5 H* (1.6-2.6) mg/dL Total Bilirubin 1.1 H (0.0-1.0) mg/dL Direct Bilirubin 0.6 H (0.0-0.5) mg/dL Alkaline Phosphatase 262 H (39-117) U/L Troponin I High Sens 21.3 H (<3.5-17.0) ng/L C-Reactive Protein 1.71 H (< or = 0.50) mg/dL Total Protein 5.6 L (6.5-8.0) g/dL Albumin 3.2 L (3.5-5.0) g/dL Ur Specific [place] (1.005-1.025) Urine Protein (Neg-Trace) mg/dL Urine RBC (0-2) /HPF 01/16/23 01/16/23 01/16/23 Range/Units 10:47 10:47 11:13 RBC (4.20-5.50) X10*6/uL Hgb (12.0-16.0) g/dl Hct (37.0-47.0) % MPV (9.4-12.3) fL Lymph % (Auto) (20-40) % Chloride (96-108) mmol/L Carbon Dioxide (22-29) mmol/L BUN (9-16) mg/dL Random Glucose (60-115) mg/dL Lactic Acid 6.7 H* (0.5-2.0) mmol/L Magnesium (1.6-2.6) mg/dL Total Bilirubin (0.0-1.0) mg/dL Direct Bilirubin (0.0-0.5) mg/dL Alkaline Phosphatase (39-117) U/L Troponin I High Sens 30.3 H (<3.5-17.0) ng/L C-Reactive Protein (< or = 0.50) mg/dL Total Protein (6.5-8.0) g/dL Albumin (3.5-5.0) g/dL Ur Specific [place] >= 1.030 H (1.005-1.025) Urine Protein 100 (2+) H (Neg-Trace) mg/dL Urine RBC 3-5 H (0-2) /HPF Short CBC 01/16/23 Range/Units 09:51 WBC 7.3 (4.8-10.8) X10*3/uL Hgb 17.8 H (12.0-16.0) g/dl Hct 51.9 H (37.0-47.0) % Plt Count 262 (160-400) X10*3/uL BMP 01/16/23 09:51 Sodium 136 Potassium 3.8 Chloride 109 H Carbon Dioxide 12 L BUN 19 H Creatinine 1.02 Calcium 9.9 Cardiac Enzymes 01/16/23 Range/Units 10:47 Total Creatine Kinase 59 (26-140) U/L Liver Function 01/16/23 Range/Units 09:51 Total Bilirubin 1.1 H (0.0-1.0) mg/dL Direct Bilirubin 0.6 H (0.0-0.5) mg/dL AST 18 (5-31) U/L ALT 15 (0-31) U/L Alkaline Phosphatase 262 H (39-117) U/L Albumin 3.2 L (3.5-5.0) g/dL Urine 01/16/23 Range/Units 11:13 Urine Color BROWN Urine Appearance Cloudy Urine pH 6.5 (5.0-9.0) Ur Specific [place] >= 1.030 H (1.005-1.025) Urine Protein 100 (2+) H (Neg-Trace) mg/dL Urine Glucose (UA) TNP All other labs normal. Laboratory Results WBC 7.3 X10*3/uL (4.8-10.8) 01/16/23 09:51 RBC 5.88 X10*6/uL (4.20-5.50) H 01/16/23 09:51 Hgb 17.8 g/dl (12.0-16.0) H 01/16/23 09:51 Hct 51.9 % (37.0-47.0) H 01/16/23 09:51 MCV 88.3 fL (80.0-98.0) 01/16/23 09:51 MCH 30.3 pg (27.0-33.0) 01/16/23 09:51 MCHC 34.3 g/dl (31.0-35.0) 01/16/23 09:51 RDW 12.1 % (11.0-16.0) 01/16/23 09:51 Plt Count 262 X10*3/uL (160-400) 01/16/23 09:51 MPV 9.2 fL (9.4-12.3) L 01/16/23 09:51 Immature Gran % (Auto) 0.4 % (0.0-0.4) 01/16/23 09:51 Neut % (Auto) 71.4 % (45-73) 01/16/23 09:51 Lymph % (Auto) 17.4 % (20-40) L 01/16/23 09:51 [place] % (Auto) 9.4 % (2-11) 01/16/23 09:51 Eos % (Auto) 0.4 % (0-4) 01/16/23 09:51 Baso % (Auto) 1.0 % (0-2) 01/16/23 09:51 Lymph # (Auto) 1.3 X10*3/uL (1.2-4.9) 01/16/23 09:51 [place] # (Auto) 0.7 X10*3/uL (0.1-1.2) 01/16/23 09:51 Eos # (Auto) 0.0 X10*3/uL (0.0-0.4) 01/16/23 09:51 Baso # (Auto) 0.1 X10*3/uL (0.0-0.2) 01/16/23 09:51 Abs Immat Gran (auto) 0.03 X10*3/uL (0.00-0.03) 01/16/23 09:51 Absolute Neuts (auto) 5.2 x10*3/uL (2.0-8.3) 01/16/23 09:51 Absolute Nucleated RBC 0.000 X10*3/uL (0.0-0.012) 01/16/23 09:51 Nucleated RBC % (auto) 0.0 /100WBC (0.0-0.2) 01/16/23 09:51 PT 12.8 SEC (11.1-13.3) 01/16/23 12:01 INR 1.1 (0.9-1.1) 01/16/23 12:01 Sodium 136 mmol/L (135-145) 01/16/23 09:51 Potassium 3.8 mmol/L (3.3-5.1) 01/16/23 09:51 Chloride 109 mmol/L (96-108) H 01/16/23 09:51 Carbon Dioxide 12 mmol/L (22-29) L 01/16/23 09:51 Anion Gap 19 (12-20) 01/16/23 09:51 BUN 19 mg/dL (9-16) H 01/16/23 09:51 Creatinine 1.02 mg/dL (0.5-1.4) 01/16/23 09:51 Estim Creat Clear Calc 70.6 01/16/23 09:51 Estimated GFR > 60 01/16/23 09:51 Random Glucose 146 mg/dL (60-115) H 01/16/23 09:51 Lactic Acid 6.7 mmol/L (0.5-2.0) H* 01/16/23 10:47 Calcium 9.9 mg/dL (8.4-10.2) 01/16/23 09:51 Magnesium 3.5 mg/dL (1.6-2.6) H* 01/16/23 09:51 Total Bilirubin 1.1 mg/dL (0.0-1.0) H 01/16/23 09:51 Direct Bilirubin 0.6 mg/dL (0.0-0.5) H 01/16/23 09:51 AST 18 U/L (5-31) 01/16/23 09:51 ALT 15 U/L (0-31) 01/16/23 09:51 Alkaline Phosphatase 262 U/L (39-117) H 01/16/23 09:51 Total Creatine Kinase 59 U/L (26-140) 01/16/23 10:47 Troponin I High Sens 30.3 ng/L (<3.5-17.0) H 01/16/23 10:47 C-Reactive Protein 1.71 mg/dL (< or = 0.50) H 01/16/23 09:51 Total Protein 5.6 g/dL (6.5-8.0) L 01/16/23 09:51 Albumin 3.2 g/dL (3.5-5.0) L 01/16/23 09:51 Lipase 12 U/L (8-78) 01/16/23 09:51 Beta HCG, Quant < 2 mIU/mL 01/16/23 09:51 Urine Color BROWN 01/16/23 11:13 Urine Appearance Cloudy 01/16/23 11:13 Urine pH 6.5 (5.0-9.0) 01/16/23 11:13 Ur Specific [place] >= 1.030 (1.005-1.025) H 01/16/23 11:13 Urine Protein 100 (2+) mg/dL (Neg-Trace) H 01/16/23 11:13 Urine Glucose (UA) TNP 01/16/23 11:13 Urine Ketones TNP 01/16/23 11:13 Urine Blood Trace (Negative) 01/16/23 11:13 Urine Nitrite TNP 01/16/23 11:13 Ur Leukocyte Esterase TNP 01/16/23 11:13 Urine RBC 3-5 /HPF (0-2) H 01/16/23 11:13 Urine WBC 0-5 /HPF (0-5) 01/16/23 11:13 Ur Squamous Epith Cells >20 /HPF (0-2) 01/16/23 11:13 Ur Renal Epithelial Cell Present 01/16/23 11:13 Calcium Oxalate Crystal Present 01/16/23 11:13 Other Crystals Present 01/16/23 11:13 Urine Bacteria None Seen (None Seen) 01/16/23 11:13 Hyaline Casts 11-20 /LPF (0-2) 01/16/23 11:13 Urine Opiates Screen Cancelled 01/16/23 11:13 Urine Fentanyl Screen Cancelled 01/16/23 11:13 Ur Barbiturates Screen Cancelled 01/16/23 11:13 Ur Phencyclidine Scrn Cancelled 01/16/23 11:13 Ur Amphetamines Screen Cancelled 01/16/23 11:13 U Benzodiazepines Scrn Cancelled 01/16/23 11:13 Urine Cocaine Screen Cancelled 01/16/23 11:13 U Marijuana (THC) Screen Cancelled 01/16/23 11:13 Ethyl Alcohol < 10 mg/dL 01/16/23 09:51 Impressions KUB X-Ray 01/16/23 10:12 IMPRESSION: Constipation Abdomen/Pelvis CT 01/16/23 14:42 IMPRESSION: 1. No pulmonary embolism. 2. Severe stool burden throughout the colon consistent with constipation. There are areas of circumferential colonic wall thickening in addition to pericolonic stranding, most prominent involving the descending colon. Findings are likely related to severe constipation, however, colitis is also within the differential. 3. The majority the esophagus is fluid-filled and the stomach is mildly distended with fluid. Small bowel loops however are normal in caliber. 4. 5 mm right middle lobe pulmonary nodule. Fleischner guidelines followed. Chest CTA 01/16/23 14:42 IMPRESSION: 1. No pulmonary embolism. 2. Severe stool burden throughout the colon consistent with constipation. There are areas of circumferential colonic wall thickening in addition to pericolonic stranding, most prominent involving the descending colon. Findings are likely related to severe constipation, however, colitis is also within the differential. 3. The majority the esophagus is fluid-filled and the stomach is mildly distended with fluid. Small bowel loops however are normal in caliber. 4. 5 mm right middle lobe pulmonary nodule. Fleischner guidelines followed. Assessment and Plan (1) Constipation: Status: Inactive Ct scan shows high stool volume throughout the colon c/w severe constipation. The rectal vault is now empty after disimpaction. The stomach is distended and fluid filled. I have recommended an NGT to be placed. (2) Acute lactic acidosis: Status: Inactive Her urine is very dark but the CK's are within normal. Despite a normal creatinine, she appears clinically dehydrated. Etiology of her lactic acidosis is uncertain, and her CT scan with IV contrast does not suggest mesenteric occlusion or bowel ischemia at this time'. However, this is an important differential at this time and may need to undergo laparotomy. She should be aggressively hydrated. She will need to be in the ICU as I cannot feel good pulses, and we cannot elicit any BP reading at this time. She may need to be intubated as she is tachypneic from acidosis. She should be worked up for other etiology of her acidosis as well. I was able to find her grandmother and she stated that the patient has been complaining of back pains and flank pains as well. She does not think the [facility] ient has been doing IV drugs anymore. The patient is critically ill at this time. Her lactate should be repeated after hydration. She has received 3 L of IVF accdg to the ED staff since this morming. Time Spent With Patient Time: Total time managing care of this patient today ____ minutes. Procedures Date of Service Date of Service: 01/20/23
[2023-01-16] MEDS: Norepinephrine Bitartrate/D5W 8 MG/250 ML PLAST..BAG 5.83 MG IV (16:48)
[2023-01-16 17:50] LABS: ~Lactic Acid-LAB USE ONLY 8.3 mmol/L (0.5-2.0)
[2023-01-16] MEDS: Rocuronium Bromide 50 MG/5 ML VIAL 100 MG IVPUSH (17:59)
[2023-01-16] MEDS: Etomidate 20 MG/10 ML VIAL 10 MG IVPUSH (17:59)
--- NOTE | 2023-01-16 18:25 | PC.NURSE ---
life flight here to transport PT to [facility]
--- NOTE | 2023-01-16 18:49 | PC.NURSE ---
1600 Patient began to decompensation further were unable to get BP or O2 sat. decision made to intubate, 7.5 EET 23 at lip, 16 fr Todd, triple lumen central. continued to remain pale mottled cool to touch PERRLA. patient has been life frighted to [place].
[2023-01-16 19:13] LABS: Reflex Lactate? 2 Y
--- NOTE | 2023-01-16 19:30 | PC.NURSE ---
Output from NG 500ml
== END 2023-01-16 18:45 | disposition short-term general hospital (02) ==
PROVIDERS: Physician Assistant; Emergency Provider Emergency Medicine Emergency Medical Services
DX: K59.00 Constipation, unspecified (principal); E87.21 Acute metabolic acidosis; I95.9 Hypotension, unspecified; R33.9 Retention of urine, unspecified; R10.9 Unspecified abdominal pain; R00.0 Tachycardia, unspecified; F11.20 Opioid dependence, uncomplicated; Z79.899 Other long term (current) drug therapy
CPT/HCPCS: 31500; 36415; 36556; 43762; 51798; 71045; 71275; 74018; 74177; 80048; 80076; 80307; 81001; 82550; 83605; 83690; 83735; 84484; 84702; 85025; 85610; 86140; 87040; 87086; 93005; 94002; 96361; 96365; 96366; 96372; 96375; 96376; 99285; J2060; J2270; J2543; J3010

== ENCOUNTER → 2023-01-16 08:34 | Outpatient (BNV) | payer OTHER, SELFPAY | PROVIDERS: Emergency Provider Emergency Medicine Emergency Medical Services; Visit Provider Internal Medicine Cardiovascular Disease | DX: R00.0 Tachycardia, unspecified (principal); R94.31 Abnormal electrocardiogram [ECG] [EKG] | CPT/HCPCS: 93010 ==

== ENCOUNTER → 2023-01-16 09:05 | Outpatient (BNV) | payer OTHER, SELFPAY | PROVIDERS: Emergency Provider Emergency Medicine Emergency Medical Services; Visit Provider Surgery | DX: K59.00 Constipation, unspecified (principal); E87.21 Acute metabolic acidosis | CPT/HCPCS: 99285 ==